=== PATIENT | male | born 1995 | race Caucasian/White ===

== ENCOUNTER 2023-06-17 10:06 | Day surgery (SDC) | payer SELFPAY ==
[2023-06-17] VITALS (8 sets, daily range): BP systolic 111–130; BP diastolic 56–81; PULSE 64–82; RESP 14–18; TEMP 36.2–36.9; O2SAT 96–100; BMI 25.9
[2023-06-17] MEDS: Lactated Ringers 1,000 ML 15 ML IV (10:45)
--- NOTE | 2023-06-17 11:15 | HP.PCM_ITS ---
History and Physical Date of Admission: 06/17/23 Intake Vital Signs 04/23/2413:14 Height 5 ft 7 in Weight: 166 lb BMI 25.9 BP 114/70 Blood Pressure Location Rt brachial Position Sitting Respiration 17 Pulse 85 Pulse Source Monitor Temp 97.4 F L Temp Source Temporal Pulse Oximetry (%) 98 Oxygen Delivery Method room air Intake Visit Reasons: SELF REFERRED INGUINAL HERNIA Chief Complaint: self referred inguinal hernia Is patient in pain?: No Allergies No Known Allergies Allergy (Verified 04/23/23 14:15) Medications NK 04/23/23 [History Confirmed 04/23/23] [facility] Social History (Updated 04/23/23 @ 14:14 by Brooke Turner) Smoking Status: Never smoker alcohol intake: never HPI HPI HPI: Patient is a 27-year-old male who says 2 months ago he was lifting something heavy and felt a bulge in his right groin. The bulge has been recurring and it is painful and he is able to push it back in. Denies any nausea or vomiting or previous surgical history. ROS General General: No weight change, appetite, fatigue, colon cancer, breast cancer or weakness HEENT HEENT: No difficulty swallowing, eye injury, eye surgery, swollen glands or hoarseness Endo Endocrine: No thyroid disease, diabetes mellitus, thyroid cancer, Hair loss, heat intolerance or cold intolerance Skin Skin: No rash or changing moles Musc Musculoskeletal: No back problems, arthritis, rheumatoid arthritis, gout or joint pain Cardio Cardiovascular: No murmur, pacemaker, heart disease, atrial fibrillation, high blood pressure, heart attack, heart stent, palpitations, shortness of breat with exertion or chest pain Psych Psychiatric: No depression, anxiety or hearing voices Resp Respiratory: No shortness of breath, No sleep apnea, No cough, No COPD, No asthma, No emphysema and No wheezing Gastro Gastrointestinal: No abdominal pain, No nausea or vomiting, No diarrhea, No constipation, No blood in stool, No acid reflux, No hemorrhoids, No ulcers, No gallbladder problem and No black,tarry stools Travis Hematologic: No blood thinners, No blood disorders, No bleeding, No anemia and No blood clots Neuro Neurologic: No system reviewed and no additional complaints, except as documented, No as per HPI, No abnormal gait, No abnormal hearing, No abnormal movements, No abnormal speech, No behavioral changes, No burning sensations, No confusion, No convulsions, No disequilibrium, No dizziness, No localized weakness, No frequent falls, No headache(s), No lack of coordination, No loss of vision, No memory loss, No numbness, No other visual disturbances, No radicular pain, No restless legs, No sensory deficit, No syncope, No tingling, No tremor(s), No weakness and No other Exam Const General: cooperative Orientation: alert and oriented x3 HENMT Head: normal to inspection Neck Neck: normal visual inspection and full ROM Chest Chest palpation & inspection: normal inspection of the chest Resp Effort & Inspection: normal respiratory effort Auscultation: clear to auscultation bilaterally Cardio Rate: regular rate Rhythm: regular rhythm GI Inspection: non-distended Palpation: soft, hernia indirect inguinal on the right and nontender Skin General: no rashes or lesions noted Neuro Genera l: patient alert and patient oriented x3 Extrem General: full ROM Psych Appearance: grossly normal Mental Status: mental status grossly normal Assessment and Plan Assessment and Plan (1) Right inguinal hernia: Status: Acute Plan: The patient has a soft reducible right inguinal hernia. I discussed robotic assisted laparoscopic inguinal hernia repair with mesh with the patient. I discussed the procedure in detail as well as the risks including but not limited to bleeding, infection, injury other organs such as the bowel, bladder, blood supply to the testicle. Patient understands all the risks and is when to proceed. Patient says he has inguinal hernias that run in the family and all of the males and he would like the opposite side repaired if there is any sign of potential hernia. Renzo Pickard MD Pager: [facility] [address] [place] [address] [address] [place] [address] Office: I have examined the patient and the H&P has been reviewed. There are no clinical changes since date of exam.
[2023-06-17] MEDS: Cefazolin 2 GM in 0.9% Normal Saline (100mL Bag) 100 ML IV (11:36)
[2023-06-17] MEDS: Bupivacaine Mpf 0.5% 30 ML VIAL (12:22)
--- NOTE | 2023-06-17 12:45 | OP.PCM_ITS ---
Report of Operation Date of Procedure: 06/17/23 Pre-Operative Diagnosis: Right inguinal hernia Post-Operative Diagnosis: Same Surgery/Procedure Performed:: Robotic assisted laparoscopic right inguinal hernia repair with mesh Type of Anesthesia: General/Regional Estimated Blood Loss (mL): 5 Description of Procedure: Patient was brought back to the operating room and general anesthesia was ind uced. The abdomen was prepped and draped in usual sterile fashion. Next a midline incision was made superior to the umbilicus and the fascia was grasped and elevated. A Veress needle was placed into the abdomen and a drop test was performed. Next the abdomen was insufflated to 15 mmHg and the Veress needle was removed. A camera port was placed and the camera was placed into the abdomen. It was inspected for injuries and there were none. Patient was placed in Trendelenburg position. The inguinal regions were inspected and the patient only had a right inguinal hernia. Next under direct visualization an 8 mm port was placed in the right lateral abdominal sidewall as well as the left lateral abdominal sidewall and the robot was docked. Using electrocautery scissors in the right lower quadrant incision was made in the peritoneum and then deepened and dissected inferiorly until the hernia sac was encountered and then it was reduced into the abdomen along with a small lipoma. Dissection was carried posteriorly until there was a long area for overlap. Next a ProGrip mesh was placed into the right groin and unfolded over the hernia defect area. Next the peritoneum was reapproximated using a running 3 OV lock suture which completely cover the mesh by the end of the Procedure. The robot was undocked and the abdomen was allowed to desufflate. The ports were removed. The incisions were injected with local anesthetic and closed interrupted 4-0 Monocryl sutures. Steri-Strips and bandages were applied. Scrotum was checked in the end the case and contain both testicles. Patient was awoken and taken to PACU in stable condition and tolerated the procedure well. Grafts/Implants Used: ProGrip mesh in the right groin Admit VTE Documentation VTE Mechan Device Prophylaxis: SCD's
--- NOTE | 2023-06-17 12:52 | DCINST_ITS ---
Discharge Instructions Diet Discharge Diet: Light diet - advance as tolerated Activity Discharge Activity: May Shower (tomorrow over bandages) Lifting Restrictions: 15 lbs for 4 weeks Additional Activity Instructions:: Take ibuprofen and Tylenol alternating for pain, oxycodone for breakthrough pain. Dressing / Incision Call your doctor if your incision/area has: Continuous Slow Oozing, Sudden Increased Bleeding, Increased Pain/ Swelling, Increased Redness, Foul Smelling Discharge and Swelling at the incision site Call your doctor if you observe: Fever of 101 or Higher Remove Dressing in: 2 days (Remove clear dressing in 2 days, remove Steri-Strips in 7 to 10 days) Cleanse incision/area with: Soap & Water Follow Up Care Please Follow Up With: Renzo Pickard MD When: Please call to schedule 2 week follow up appointment. [phone] Test Results: Test results from this visit will be discussed in further detail at your follow- up appointment, if applicable. Discharge Plan Admission Attending Provider: Renzo Pickard Primary Care Provider: Care Physician,Lisa Primary Discharge Orders/Prescriptions Prescriptions: New oxycodone 5 mg Tablet 5 - 10 mg PO Q4H PRN PRN (Reason: Pain Score 4-10/10) 5 Days Qty: 10 0RF Referrals / Follow Up: Care Physician,No Primary [Primary Care Provider] - Disposition Disposition (needs filled in before D/C Order can be placed): Home, Self Care
[2023-06-17] MEDS: Acetaminophen 325 MG Tablet 650 MG PO (13:50)
== END 2023-06-17 15:37 | disposition home or self-care (01) ==
LOC: SDC 10:20 → AC 10:22
PROVIDERS: Referring Provider Surgery; Visit Provider Surgery
PROC: (CPT 49650; principal; 2023-06-17 11:10)
DX: K40.90 Unilateral inguinal hernia, without obstruction or gangrene, not specified as recurrent (principal); D17.5 Benign lipomatous neoplasm of intra-abdominal organs
CPT/HCPCS: 49650; S2900; 00840; J7120; J2405

== ENCOUNTER 2024-08-24 12:59 | Emergency (ER) | payer OTHER, SELFPAY ==
[2024-08-24 13:00] VITALS: BP 141/93; PULSE 88; RESP 16; TEMP 37; O2SAT 98; BMI 26.1
--- NOTE | 2024-08-24 13:14 | EDS_ITS ---
HPI History of Present Illness Chief Complaint: Head Injury Detail of Chief Complaint: Head injury and right ear injury Informant: patient Narrative Narrative: Patient presents to the emergency department with head injury and right ear inju ry that occurred prior to arrival in the emergency department. 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 He may have hit the side of the forklift. He was knocked unconscious for 1 to 2 minutes. Currently complaining of a headache and pain to his right ear. Denies neck pain or chest pain or abdominal pain. Unsure of his last tetanus shot. No significant medical history. [facility] Medical History (Updated 08/24/24 @ 14:[address] Elsa Hutchison, DO) Restless legs Non-smoker Leg cramps Home Medications ?Medication ?Instructions ?Recorded ?Last Taken ?Type NK 08/24/24 Unknown History Allergy/AdvReac Type Severity Reaction Status Date / Time No Known Allergies Allergy Verified 08/24/24 13:00 Surgical History No history of previous surgery Social History (Updated 04/23/23 @ 14:14 by Brooke Turner) Smoking Status: Never smoker alcohol intake: never ROS ROS ED Review of Systems ROS Unobtainable: other Constitutional Constitutional ED: Reports lethargy; Denies chills, fever(s), sweats or weight loss Eyes Eyes: Denies blurry vision, change in vision or diplopia ENT ENT ED: Reports other Details: Right ear lacerations, scalp laceration ; Denies rhinorrhea or sore throat Cardiovascular Cardiovascular: Denies chest pain, orthopnea or racing heartbeat Respiratory/Chest Respiratory/Chest: Denies cough, dyspnea, dyspnea on exertion, orthopnea or sp utum Gastrointestinal Gastrointestinal: Denies abdominal pain, diarrhea, nausea or vomiting Genitourinary Genitourinary ED: Denies dysuria, hematuria or urinary frequency Musculoskeletal Musculoskeletal: Denies arthralgias, back pain, myalgias or neck pain Integumentary Denies abscess, Abrasions or rash Neurologic Neurologic: Reports headache(s); Denies weakness Psychiatric Psychiatric: Denies anxiety, depression or suicidal thoughts Endocrine Endocrinology: Denies polydipsia, polyphagia or polyuria Hematologic/Lymphatic Hematologic/Lymphatic: Denies easy bleeding, easy bruising or lymphadenopathy Allergic/Immunologic Allergic/Immunologic ED: Denies mouth swelling, tongue swelling or urticaria EXAM Physical Exam Const Vital Signs: 08/24/24 13:00 08/24/24 13:04 Temperature 98.6 F Temperature Source Oral Pulse Rate 88 Respiratory Rate 16 Respiratory Effort Normal Respiratory Depth Normal Respiratory Pattern Normal Blood Pressure 141/93 H Blood Pressure Mean 109 Pulse Ox 98 Oxygen Delivery Method Room Air Room Air Positive well nourished and well developed General Appearance ED: well developed and NAD HEENT Reports TM's clear and moist mucous membranes HEENT Narrative: Patient has a right posterior occiput laceration measuring 8 cm in length. No bony step-offs or depressions no obvious foreign bodies noted. Evaluation of the right ear does reveal complex laceration of the inner portion of the ear appears to be macerated. normocephalic and atraumatic; Negative for trauma or tenderness Tympanic Membrane ED: Yes TM's clear Eyes PERRL and EOMs intact bilaterally General Eye ED: Negative for pale conjunctiva or scleral icterus Neck no lymphadenopathy, supple and no JVD General: Negative for tenderness Chest Wall inspection of chest normal and palpation of chest normal Chest: Negative for tenderness Resp normal respiratory effort and clear to auscultation bilaterally Effort and Inspection: Negative for respiratory distress or pain with movement Auscultation: Negative for rhonchi, wheezes or diminished lung sounds Cardio regular rate, regular rhythm, S1 normal heart sound, S2 normal heart sound and no murmurs Peripheral Pulses: pulses 2+ throughout GI normal to inspection, nondistended, normoactive bowel sounds, soft to palpation, non-tender, non-distended and no masses Back/Spine no CVA tenderness and no thoracic nor lumbar tenderness Extremity normal to inspection General Extremety ED: Negative for edema General Extremity: Negative for edema Neuro oriented x3, CN's II-XII intact bilaterally, no sensory deficits noted and gait normal Sensorium / Orientation: awake, alert, oriented to person, oriented to place and oriented to time Motor Exam: strength 5/5 throughout and strength abnormal Psych mental status grossly normal Skin no rashes or lesions noted and no wounds MDM MDM MDM Narrative Medical decision making narrative: Patient presents with injury to his scalp and right ear after a fall. Positive LOC. GCS of 15 on arrival. Following commands. Unsure of his last tetanus. He received a tetanus booster. CT scan of the brain without contrast showed no acute intracranial hemorrhage. No skull fracture. CT of the C-spine showed no fractures. I discussed case with Dr. Fishman plastic surgeon who will take patient to the OR for definitive treatment and repair of lacerations of the scalp as well as the ear. Lab Data Attestation: I reviewed the patient's lab results. Radiography Diagnostic Testing: Clinical Impression(s) from Imaging Studies Brain CT 08/24/24 13:14 IMPRESSION: No acute intracranial hemorrhage, midline shift or mass effect. If symptoms persist, further evaluation with MRI is recommended. Reading Location: [facility] Cervical Spine CT 08/24/24 13:14 IMPRESSION: UNREMARKABLE NONCONTRAST CERVICAL SPINE CT. Reading Location: [place] [address] Discharge Plan Triage Chief Complaint: Head Injury ED Provider: Elsa Hutchison Dx/Rx/DC Orders Clinical Impression: Closed head injury, Concussion, Scalp laceration, Complex laceration of ear Instructions: ED Concussion, ED FACIAL LACERATION Suture Tape, ED Laceration Scalp Stitches or [facility] Prescriptions: No Action NK Primary Care Provider: Care Physician,No Primary Referrals: Deep Fishman MD [Med Staff - Active Staff] - Care Physician,No Primary [Primary Care Provider] - Print Language: Tristanian Disposition Disposition: Home, Self Care
--- NOTE | 2024-08-24 13:14 | CT_ITS ---
EXAM: CT Head Without Intravenous Contrast CLINICAL INDICATION: HEAD INJURY TECHNIQUE: Axial computed tomography images of the head/brain without intravenous contrast. This CT exam was performed using one or more of the following dose reduction techniques: automated exposure control, adjustment of the mA and/or kV according to patient size, and/or use of iterative reconstruction technique. COMPARISON: No relevant prior studies available. FINDINGS: BRAIN AND EXTRA-AXIAL SPACES: No acute intracranial hemorrhage, midline shift or mass effect. If symptoms persist, further evaluation with MRI is recommended. No significant white matter disease. BONES/JOINTS: Unremarkable. No acute fracture. SOFT TISSUES: Unremarkable. SINUSES: Unremarkable as visualized. No acute sinusitis. MASTOID AIR CELLS: Unremarkable as visualized. No mastoid effusion. CT/Brain/Head without Contrast IMPRESSION: No acute intracranial hemorrhage, midline shift or mass effect. If symptoms per sist, further evaluation with MRI is recommended. Reading [facility]
--- NOTE | 2024-08-24 13:14 | CT_ITS ---
PROCEDURE: SPINE CERVICAL WITHOUT CONTRAS 08/24/2024 REASON FOR EXAM: FALL Laceration of the left ear following a fall. TECHNIQUE: Cervical spine CT without contrast. Coronal and Sagittal reconstruction series were provided. One or more dose reduction techniques were used (e.g., Automated exposure control, adjustment of the mA and/or kV according to patient size, use of iterative reconstruction technique RADIATION DOSE SUMMARY: CTDlvol: 32.5 mGy DLP: 2087.3 mGycm COMPARISON: None FINDINGS: Alignment: Normal Vertebrae: Unremarkable Soft Tissues: Unremarkable Other: C1-2: Unremarkable C2-3: Unremarkable C3-4: Unremarkable C4-5: Unremarkable C5-6: Unremarkable C6-7: Unremarkable C7-T1: Unremarkable CT/Spine Cervical without Contras IMPRESSION: UNREMARKABLE NONCONTRAST CERVICAL SPINE CT. Reading Location: [place] [address]
[2024-08-24] MEDS: Diphth,Pertuss(Acell),Tet Vac 0.5 ML Vial IM (14:31)
[2024-08-24 14:39] VITALS: BP 137/63; PULSE 81; RESP 16; TEMP 36.7; O2SAT 99
--- OUTSIDE RECORDS SUMMARY | 2024-08-24 21:07 | XMS RPT_ITS | CCD ---
Author Organization [facility] Care Team Providers Care Maintenance Machinist Name Role Phone Dr. Renzo Pickard Attending Provider [phone] Dr. Renzo Pickard Referring Provider [phone] Dr. Renzo Pickard Other Provider Care Physician, No Primary Primary Care Provider Unavailable Renzo Pickard Attending Unavailable Care Physician, No Primary Primary Care Unava ilable Renzo Pickard Consulting Unavailable Renzo Pickard Attending Unavailable Renzo Pickard Referring Unavailable Care Physician, No Primary Primary Care Unava ilable Renzo Pickard Attending Unavailable Neeraj, Renzo Referring Unavailable Care Physician, No Primary Primary Care Provider Unavailable Dr. Elsa Hutchison DO Emergency Provider Care Physician, No Primary Referring Provider Un available Sravanthi MERCHANT, Dr. Adame Attending Provider Medications Current Medications Medication Drug Class(es) Dates Sig (Normalized) Sig (Original) ciprofloxacin 500 mg oral tablet (1 source) Quinolone Antimicrobial Start: 08-24-2024 take 1 tablet by mouth twice daily Ciprofloxacin Hcl (Cipro) 500 mg tablet Active 500 mg PO TWICE A DAY 14 7 August 24, 2024 12:00am August 30, 2024 12:00am [place] (Nk) (1 source) Start: 08-24-2024 [place] (Nk) Active August 24, 2024 12:00am Completed/Discontinued Medications Medication Drug Class(es) Dates Sig (Normalized) Sig (Original) oxyCODONE hydrochloride 5 mg oral tablet (3 sources) Opioid Agonist Start: 06-17-2023 End: 08-24-2024 take 5-10 mg by mouth every four hours as needed for pain Oxycodone 5 mg Tablet Discontinued 5 - 10 mg PO EVERY 4 HOURS NEEDED as needed for Pain Score 4-10/10 10 5 June 17, 2023 August 24, 2024 1:06pm Problems Problem Classification Problem Date Documented Da te Episodic/Chronic Abdominal hernia (5 sources) Right inguinal hernia ; Translations: [Unilateral inguinal hernia, without obstruction or gangrene, not specified as recurrent] Onset: 06-17-2023 04-23-2023 Episodic Intracranial injury (2 sources) Concussion injury of body structure; Translations: [Concussion] 08-24-2024 Episodic Open wounds of head; neck; and trunk (4 sources) Scalp laceration; Translations: [Laceration without foreign body of scalp, initial encounter] 08-24-2024 Episodic Other injuries and conditions due to external causes (2 sources) Closed injury of head; Translations: [Unspecified injury of head, initial encounter] 08-24-2024 Episodic Results Test Name Value Interpretation Reference Range Facil ity Discharge Instructionon 04 Discharge Instruction [facility] Medical Records Department [address] [place] [id number] Instructions for Home/Discharge Instructions 06/17/23 1252 MR#: [id number] Acct: [id number] Name: KASHMIR MAKI Rep #: [id number] : 1995 27 From: Renzo Pickard MD PCP: Care Physician,No Primary Status:REG [facility] Discharge Instructions Diet Discharge Diet: Light diet - advance as tolerated Activity Discharge Activity: July Shower (tomorrow over bandages) Lifting Restrictions: 15 lbs for 4 weeks Additional Activity Instructions:: Take ibuprofen and Tylenol alternating for pain, oxycodone for breakthrough pain. Dressing / Incision Call your doctor if your incision/area has: Continuous Slow Oozing, Sudden Increased Bleeding, Increased Pain/ Swelling, Increased Redness, Foul Smelling Discharge and Swelling at the incision site Call your doctor if you observe: Fever of 101 or Higher Remove Dressing in: 2 days (Remove clear dressing in 2 days, remove Steri-Strips in 7 to 10 days) Cleanse incision/area with: Soap Water Follow Up Care Please Follow Up With: Renzo Pickard MD When: Please call to schedule 2 week follow up appointment. [phone] Test Results: Test results from this visit will be discussed in further detail at your follow-up appointment, if applicable. Discharge Plan Admission Attending Provider: Renzo Pickard Primary Care Provider: Care Physician,No Primary Discharge Orders/Prescriptions Prescriptions: New oxycodone 5 mg Tablet 5 - 10 mg PO Q4H PRN PRN (Reason: Pain Score 4-10/10) 5 Days Qty: 10 0RF Referrals / Follow Up: Care Physician,No Primary [Primary Care Provider] - Disposition Disposition (needs filled in before D/C Order can be placed): Home, Self Care 06/17/23 1256 Renzo Pickard MD CC: No Primary Care Physician Signed Normal [facility] Operative Reporton 4 Operative Report [facility] Medical Records Department [address] [place] [address] Operative Report 06/17/23 1245 MR#: [id number] Acct: [id number] Name: KASHMIR MAKI Rep #: [id number] : 1995 27 From: Renzo Pickard MD PCP: Care Physician,No Primary Status:[facility] Location: [place] [address] Report of Operation Date of Procedure: 06/17/23 Pre-Operative Diagnosis: Right inguinal hernia Post-Operative Diagnosis: Same Surgery/Procedure Performed:: Robotic assisted laparoscopic right inguinal hernia repair with mesh Type of Anesthesia: General/Regional Estimated Blood Loss (mL): 5 Description of Procedure: Patient was brought back to the operating room and general anesthesia was induced. The abdomen was prepped and draped in usual sterile fashion. Next a midline incision was made superior to the umbilicus and the fascia was grasped and elevated. A Veress needle was placed into the abdomen and a drop test was performed. Next the abdomen was insufflated to 15 mmHg and the Veress needle was removed. A camera port was placed and the camera was placed into the abdomen. It was inspected for injuries and there were none. Patient was placed in Trendelenburg position. The inguinal regions were inspected and the patient only had a right inguinal hernia. Next under direct visualization an 8 mm port was placed in the right lateral abdominal sidewall as well as the left lateral abdominal sidewall and the robot was docked. Using electrocautery scissors in the right lower quadrant incision was made in the peritoneum and then deepened and dissected inferiorly until the hernia sac was encountered and then it was reduced into the abdomen along with a small lipoma. Dissection was carried posteriorly until there was a long area for overlap. Next a ProGrip mesh was placed into the right groin and unfolded over the hernia defect area. Next the peritoneum was reapproximated using a running 3 OV lock suture which completely cover the mesh by the end of the Procedure. The robot was undocked and the abdomen was allowed to desufflate. The ports were removed. The incisions were injected with local anesthetic and closed interrupted 4-0 Monocryl sutures. Steri- Strips and bandages were applied. Scrotum was checked in the end the case and contain both testicles. Patient was awoken and taken to PACU in stable condition and tolerated the procedure well. Grafts/Implants Used: ProGrip mesh in the right groin Admit VTE Documentation VTE Mechan Device Prophylaxis: SCD's 06/17/23 1248 Cosigner Signature (if applicable): CC: Dr. Renzo Pickard MD; No Primary Care Physician Signed Normal [facility] Surgery Visit Reporton 04-23 Surgery Visit Report [facility] [address] [place] [address] OFFICE VISIT Date of Service: 04/23/23 MR#: [id number] Acct: [id number] Name: KASHMIR MAKI Rep #: [id number] : 1995 Provider: Dr. Renzo vázquez MD Age/Sex: 27/M Location: [facility] Status: Signed Intake Vital Signs 04/23/23 14:14 Height 5 ft 7 in Weight: 166 lb BMI 25.9 BP 114/70 Blood Pressure Location Rt brachial Position Sitting Respiration 17 Pulse 85 Pulse Source Monitor Temp 97.4 F L Temp Source Temporal Pulse Oximetry (%) 98 Oxygen Delivery Method room air Intake Visit Reasons: SELF REFERRED INGUINAL HERNIA Chief Complaint: self referred inguinal hernia Is patient in pain?: No Allergies No Known Allergies Allergy (Verified 04/23/23 14:15) Medications NK 04/23/23 [History Confirmed 04/23/23] PFSH Social History (Updated 04/23/23 @ 14:14 by Brooke Turner) Smoking Status: Never smoker alcohol intake: never HPI HPI HPI: Patient is a 27-year-old male who says 2 months ago he was lifting something heavy and felt a bulge in his right groin. The bulge has been recurring and it is painful and he is able to push it back in. Denies any nausea or vomiting or previous surgical history. ROS General General: No weight change, appetite, fatigue, colon cancer, breast cancer or weakness HEENT HEENT: No difficulty swallowing, eye injury, eye surgery, swollen glands or hoarseness Endo Endocrine: No thyroid disease, diabetes mellitus, thyroid cancer, Hair loss, heat intolerance or cold intolerance Skin Skin: No rash or changing moles Musc Musculoskeletal: No back problems, arthritis, rheumatoid arthritis, gout or joint pain Cardio Cardiovascular: No murmur, pacemaker, heart disease, atrial fibrillation, high blood pressure, heart attack, heart stent, palpitations, shortness of breat with exertion or chest pain Psych Psychiatric: No depression, anxiety or hearing voices Resp Respiratory: No shortness of breath, No sleep apnea, No cough, No COPD, No asthma, No emphysema and No wheezing Gastro Gastrointestinal: No abdominal pain, No nausea or vomiting, No diarrhea, No constipation, No blood in stool, No acid reflux, No hemorrhoids, No ulcers, No gallbladder problem and No black,tarry stools Travis Hematologic: No blood thinners, No blood disorders, No bleeding, No anemia and No blood clots Neuro Neurologic: No system reviewed and no additional complaints, except as documented, No as per HPI, No abnormal gait, No abnormal hearing, No abnormal movements, No abnormal speech, No behavioral changes, No burning sensations, No confusion, No convulsions, No disequilibrium, No dizziness, No localized weakness, No frequent falls, No headache(s), No lack of coordination, No loss of vision, No memory loss, No numbness, No other visual disturbances, No radicular pain, No restless legs, No sensory deficit, No syncope, No tingling, No tremor(s), No weakness and No other Exam Const General: cooperative Orientation: alert and oriented x3 HENMT Head: normal to inspection Neck Neck: normal visual inspection and full ROM Chest Chest palpation inspection: normal inspection of the chest Resp Effort Inspection: normal respiratory effort Auscultation: clear to auscultation bilaterally Cardio Rate: regular rate Rhythm: regular rhythm GI Inspection: non-distended Palpation: soft, hernia indirect inguinal on the right and nontender Skin General: no rashes or lesions noted Neuro General: patient alert and patient oriented x3 Extrem General: full ROM Psych Appearance: grossly normal Mental Status: mental status grossly normal Assessment and Plan Assessment and Plan (1) Right inguinal hernia: Status: Acute Plan: The patient has a soft reducible right inguinal hernia. I discussed robotic assisted laparoscopic inguinal hernia repair with mesh with the patient. I discussed the procedure in detail as well as the risks including but not limited to bleeding, infection, injury other organs such as the bowel, bladder, blood supply to the testicle. Patient understands all the risks and is when to proceed. Patient says he has inguinal hernias that run in the family and all of the males and he would like the opposite side repaired if there is any sign of potential hernia. Renzo Pickard MD Pager: [facility] [address] [place] [address], [address] [place] [address] Office: Coding Level of Care Code Off vis,new,level 3 Diagnoses Right inguinal hernia K40.90 04/23/23 1425 Date Renzo Pickard MD Cosigner Signature: Date (more content not included)... Normal [facility] Vital Signs Date Time Vital Sign Value Performing Clinician Soniya agarwal 08-24-2024 15:22-0400 Diastolic blood pressure 72 mm[Hg] No Primary Care Physician [facility] 08-24-2024 15:22-0400 Heart rate 96 /min No Primary Care Physician [facility] 08-24-2024 15:22-0400 Respiratory rate 18 /min No Primary Care Physician [facility] 08-24-2024 15:22-0400 SaO2% (BldA) [Mass fraction] 98 % No Primary Care Physician [facility] 08-24-2024 15:22-0400 Systolic blood pressure 117 mm[Hg] No Primary Care Physician [facility] 08-24-2024 14:39-0400 Body temperature 98 [degF] No Primary Care Physician [facility] 08-24-2024 14:39-0400 Diastolic blood pressure 63 mm[Hg] No Primary Care Physician [facility] 08-24-2024 14:39-0400 Heart rate 81 /min No Primary Care Physician [facility] 08-24-2024 14:39-0400 Respiratory rate 16 /min No Primary Care Physician [facility] 08-24-2024 14:39-0400 SaO2% (BldA) [Mass fraction] 99 % No Primary Care Physician [facility] 08-24-2024 14:39-0400 Systolic blood pressure 137 mm[Hg] No Primary Care Physician [facility] 08-24-2024 13:00-0400 Body height 170.18 cm No Primary Care Physician [facility] 08-24-2024 13:00-0400 Body mass index (BMI) [Ratio] 26.1 kg/m2 No Primary Care Physician [facility] 08-24-2024 13:00-0400 Body weight 75.6 kg No Primary Care Physician [facility] 06-17-2023 15:30-0400 Body temperature 97.5 [degF] Dr. Renzo Pickard Work Phone: [facility] 06-17-2023 15:30-0400 Diastolic blood pressure 66 mm[Hg] Dr. Renzo Pickard Work Phone: [facility] 06-17-2023 15:30-0400 Heart rate 82 /min Dr. Renzo Pickard Work Phone: [facility] 06-17-2023 15:30-0400 Respiratory rate 18 /min Dr. Renzo Pickard Work Phone: [facility] 06-17-2023 15:30-0400 SaO2% (BldA) [Mass fraction] 100 % Dr. Renzo Pickard Work Phone: [facility] 06-17-2023 15:30-0400 Systolic blood pressure 129 mm[Hg] Dr. Renzo Pickard Work Phone: [facility] 06-17-2023 10:42-0400 Body height 170.[address] Renzo Pickard Work Phone: [facility] 06-17-2023 10:42-0400 Body mass index (BMI) [Ratio] 25.9 kg/m2 Dr. Renzo Pickard Work Phone: [facility] 06-17-2023 10:42-0400 Body weight [address] Renzo Pickard Work Phone: [facility] 04-23-2023 14:14-0500 Body mass index (BMI) [Ratio] 25.9 kg/m2 Dr. Renzo Pickard Work Phone: [facility] 04-23-2023 14:14-0500 Body temperature 97.4 [degF] Dr. Renzo Pickard Work Phone: [facility] 04-23-2023 14:14-0500 Body weight 75.[address] Renzo Pickard Work Phone: [facility] 04-23-2023 14:14-0500 Diastolic blood pressure 70 mm[Hg] Dr. Renzo Pickard Work Phone: [facility] 04-23-2023 14:14-0500 Heart rate 85 /min Dr. Renzo Pickard Work Phone: [facility] 04-23-2023 14:14-0500 Respiratory rate 17 /min Dr. Renzo Pickard Work Phone: [facility] 04-23-2023 14:14-0500 SaO2% (BldA) [Mass fraction] 98 % Dr. Renzo Pickard Work Phone: [facility] 04-23-2023 14:14-0500 Systolic blood pressure 114 mm[Hg] Dr. Renzo Pickard Work Phone: [facility] Encounters Encounter Date Encounter Type Care Provider Facility Start: 08-24-2024 End: 08-24-2024 ambulatory No Primary Care Physician [facility] Work Phone: Start: 08-24-2024 End: 08-24-[address] Deep Fishman MD -[facility] Work Phone: Start: 08-24-2024 End: 08-24-2024 Emergency department patient visit No Primary Care Physician -Emergency Department Work Phone: Start: 06-17-2023 ambulatory No Primary Car e Physician Facility:[facility] Start: 06-17-2023 End: 06-17-2023 ambulatory No Primary Care Physician Facility:[facility] Start: 06-17-2023 Non-patient / Non-visit Dr. Renzo Pickard Work Phone: [facility] Start: 06-17-2023 End: 06-17-2023 Admission to same day surgery center Dr. Renzo Pickard Work Phone: [facility] Start: 06-17-2023 End: 06-17-[address] Renzo Pickard Work Phone: [facility] Work Phone: Start: 04-23-2023 End: 04-23-2023 ambulatory Renzo Pickard Facility:[facility] Start: 04-23-2023 End: 04-23-[address] Renzo Pickard Work Phone: [facility] Work Phone: Procedures Date Procedure Procedure Detail Performing Clinician Start: 08-24-2024 CT cervical spine wi thout contrast No Primary Care Physician Start: 08-24-2024 CT of head without contrast No Primary Care Physician Start: 06-17-2023 Lap Robotic Inguinal Hernia (Right) Dr. Renzo Pickard Work Phone: Plan of Treatment Date Care Activity Detail Author Start: 06-17-[facility]23 [facility] ED Concussion ED FACIAL LACERATION Suture Tape ED Laceration Scalp Stitches or [place] [facility] Work Phone: Patient referral [facility] Work Phone: Immunizations Immunization Date Immunization Notes Care Provider Fa cility 08-24-2024 tetanus toxoid, redu serene diphtheria toxoid, and acellular pertussis vaccine, adsorbed No Primary Care Physician [facility] Payers Date Payer Category Payer Unknown [id number] 2023 Self-pay Unknown [id number] Unknown [id number] Unknown [id number] Social History Date Type Detail Facility Start: 05-21-2023 Tobacco smoking stat [facility] Unknown if ever smoked [facility] Start: 1995 Sex Assigned At Male [facility] Start: 08-24-2024 [facility] Medical Equipment Procedure Code Equipment Code Equipment Origin al Text Equipment Identifier Dates MESH,PRO TREE INSPECTOR [id number] FDA Start: 06-17-2023 MESH,PRO TREE INSPECTOR [id number] FDA Start: 06-17-2023 Goals Date Patient Goal Desired Activity /State Mental Status Date Assessment Result Facility 06-17-2023 Cognitive function Light Pain [facility] Work Phone: Radiology Diagnostic study note 08-24-2024 Note Date & Type Note Facility 08-24-2024 Radiology Diagnostic study note [facility] Imaging Services [address] [place], [place] [address] Spine Cervical without Contras MR#: [id number] Acct: [id number] Name: KASHMIR MAKI Rep #: [id number] : 1995 M 29 From: Jhonny Hutchins MD PCP: Care Physician,No Primary Status: REG ER Study:Spine Cervical without Contras Date of Exam: 08/24/24 Exam# [id number] Ordering Dr: Sharon Hutchison DO PROCEDURE: SPINE CERVICAL WITHOUT CONTRAS 08/24/2024 REASON FOR EXAM: FALL Laceration of the left ear following a fall. TECHNIQUE: Cervical spine CT without contrast. Coronal and Sagittal reconstruction series were provided. One or more dose reduction techniques were used (e.g., Automated exposure control, adjustment of the mA and/or kV according to patient size, use of iterative reconstruction technique RADIATION DOSE SUMMARY: CTDlvol: 32.5 mGy DLP: 2087.3 mGycm COMPARISON: None FINDINGS: Alignment: Normal Vertebrae: Unremarkable Soft Tissues: Unremarkable Other: C1-2: Unremarkable C2-3: Unremarkable C3-4: Unremarkable C4-5: Unremarkable C5-6: Unremarkable C6-7: Unremarkable C7-T1: Unremarkable CT/Spine Cervical without Contras IMPRESSION: UNREMARKABLE NONCONTRAST CERVICAL SPINE CT. Reading Location: [place] [address] CC: Dr. Elsa Hutchison DO; No Primary Care Physician ~ Crew Person: Signed [facility] Radiology Diagnostic study note 08-24-2024 Note Date & Type Note Facility 08-24-2024 Radiology Diagnostic study note [facility] Imaging Services [address] [place], [place] [address] Brain/Head without Contrast MR#: [id number] Acct: [id number] Name: KASHMIR MAKI Rep #: [id number] : 1995 M 29 From: Jacqui Bernard MD PCP: Care Physician,No Primary Status: REG ER Study:Brain/Head without Contrast Date of Exa m: 08/24/24 Exam# [id number] Ordering Dr: Sharon Hutchison DO EXAM: CT Head Without Intravenous Contrast CLINICAL INDICATION: HEAD INJURY TECHNIQUE: Axial computed tomography images of the head/brain without intravenous contrast. This CT exam was performed using one or more of the following dose reduction techniques: automated exposure control, adjustment of the mA and/or kV according to patient size, and/or use of iterative reconstruction technique. COMPARISON: No relevant prior studies available. FINDINGS: BRAIN AND EXTRA-AXIAL SPACES: No acute intracranial hemorrhage, midline shift or mass effect. If symptoms persist, further evaluation with MRI is recommended. No significant white matter disease. BONES/JOINTS: Unremarkable. No acute fracture. SOFT TISSUES: Unremarkable. SINUSES: Unremarkable as visualized. No acute sinusitis. MASTOID AIR CELLS: Unremarkable as visualized. No mastoid effusion. CT/Brain/Head without Contrast IMPRESSION: No acute intracranial hemorrhage, midline shift or mass effect. If symptoms persist, further evaluation with MRI is recommended. Reading Location: [facility] CC: Dr. Elsa Hutchison, DO; No Primary Care Physician ~ Crew Person: Signed [facility] Discharge summary 06-17-2023 Note Date & Type Note Facility 06-17-2023 Discharge summary Note Date/Time June 17, 2023 12:55pm [facility] Medical Records Department [address] [facility] [place] [address] Instructions for Home/Discharge Instructions 06/17/23 1252 MR#: [id number] Acct: [id number] Name: KASHMIR MAKI Rep #:[id number] : 1995 27 From: Renzo haji MD PCP: Care Physician,No Primary Status :REG [facility] Discharge Instructions Diet Discharge Diet: Light diet - advance as tolerated Activity Discharge Activity: May Shower (tomorrow over bandages) Lifting Restrictions: 15 lbs for 4 weeks Additional Activity Instructions:: Take ibuprofen and Tylenol alternating for pain, oxycodone for breakthrough pain. Dressing / Incision Call your doctor if your incision/area has: Continuous Slow Oozing, Sudden Increased Bleeding, Increased Pain/ Swelling, Increased Redness, Foul Smelling Discharge and Swelling at the incision site Call your doctor if you observe: Fever of 101 or Higher Remove Dressing in: 2 days (Remove clear dressing in 2 days, remove Steri-Stripsin 7 to 10 days) Cleanse incision/area with: Soap & Water Follow Up Care Please Follow Up With: Renzo Pickard MD When: Please call to schedule 2 week follow up appointment. [phone] Test Results: Test results from this visit will be discussed in further detail at your follow-up appointment, if applicable. Discharge Plan Admission Attending Provider: Renzo Pickard Primary Care Provider: Care Physician,No Primary Discharge Orders/Prescriptions Prescriptions: New oxycodone 5 mg Tablet 5 - 10 mg PO Q4H PRN PRN (Reason: Pain Score 4-10/10) 5 Days Qty: 10 0RF Referrals / Follow Up: Care Physician,No Primary [Primary Care Provider] - Disposition Disposition (needs filled in before D/C Order can be placed): Home, Self Care 06/17/23 1256<Electronically signed by Renzo Pickard MD>Renzo Pickard MD CC: No Primary Care Physician ~ Signed [facility] Work Phone: History and physical note 06-17-2023 Note Date & Type Note Facility 06-17-2023 History and physi yaritza note Note Date/Time June 17, 2023 11:15am [facility] Medical Records Department [address] [place] [address] History & Physical Exam 06/17/23 1115 MR#: [id number] Acct: [id number] Name: KASHMIR MAKI Rep #:[id number] : 1995 27 From: Renzo haji MD PCP: Care Physician,No Primary Status :[facility] Location: [place] [address] History and Physical Date of Admission: 06/17/23 Intake Vital Signs 04/23/2413:14 Height 5 ft 7 in Weight: 166 lb BMI 25.9 BP 114/70 Blood Pressure Location Rt brachial Position Sitting Respiration 17 Pulse 85 Pulse Source Monitor Temp 97.4 F L Temp Source Temporal Pulse Oximetry (%) 98 Oxygen Delivery Method room air Intake Visit Reasons: SELF REFERRED INGUINAL HERNIA Chief Complaint: self referred inguinal hernia Is patient in pain?: No Allergies No Known Allergies Allergy (Verified 04/23/23 14:15) Medications NK 04/23/23 [History Confirmed 04/23/23] PFSH Social History (Updated 04/23/23 @ 14:14 by Brooke Turner) Smoking Status: Never smoker alcohol intake: never HPI HPI HPI: Patient is a 27-year-old male who says 2 months ago he was lifting something heavy and felt a bulge in his right groin. The bulge has been recurring and it is painful and he is able to push it back in. Denies any nausea or vomiting or previous surgical history. ROS General General: No weight change, appetite, fatigue, colon cancer, breast cancer or weakness HEENT HEENT: No difficulty swallowing, eye injury, eye surgery, swollen glands or hoarseness Endo Endocrine: No thyroid disease, diabetes mellitus, thyroid cancer, Hair loss, heat intolerance or cold intolerance Skin Skin: No rash or changing moles Musc Musculoskeletal: No back problems, arthritis, rheumatoid arthritis, gout or joint pain Cardio Cardiovascular: No murmur, pacemaker, heart disease, atrial fibrillation, high blood pressure, heart attack, heart stent, palpitations, shortness of breat withexertion or chest pain Psych Psychiatric: No depression, anxiety or hearing voices Resp Respiratory: No shortness of breath, No sleep apnea, No cough, No COPD, No asthma, No emphysema and No wheezing Gastro Gastrointestinal: No abdominal pain, No nausea or vomiting, No diarrhea, No constipation, No blood in stool, No acid reflux, No hemorrhoids, No ulcers, No gallbladder problem and No black,tarry stools Travis Hematologic: No blood thinners, No blood disorders, No bleeding, No anemia and No blood clots Neuro Neurologic: No system reviewed and no additional complaints, except as documented, No as per HPI, No abnormal gait, No abnormal hearing, No abnormal movements, No abnormal speech, No behavioral changes, No burning sensations, No confusion, No convulsions, No disequilibrium, No dizziness, No localized weakness, No frequent falls, No headache(s), No lack of coordination, No loss ofvision, No memory loss, No numbness, No other visual disturbances, No radicular pain, No restless legs, No sensory deficit, No syncope, No tingling, No tremor(s), No weakness and No other Exam Const General: cooperative Orientation: alert and oriented x3 [facility] Head: normal to inspection Neck Neck: normal visual inspection and full ROM Chest Chest palpation & inspection: normal inspection of the chest Resp Effort & Inspection: normal respiratory effort Auscultation: clear to auscultation bilaterally Cardio Rate: regular rate Rhythm: regular rhythm GI Inspection: non-distended Palpation: soft, hernia indirect inguinal on the right and nontender Skin General: no rashes or lesions noted Neuro Genera l: patient alert and patient oriented x3 Extrem General: full ROM Psych Appearance: grossly normal Mental Status: mental status grossly normal Assessment and Plan Assessment and Plan (1) Right inguinal hernia: Status: Acute Plan: The patient has a soft reducible right inguinal hernia. I discussed robotic assisted laparoscopic inguinal hernia repair with mesh with the patient. I discussed the procedure in detail as well as the risks including but not limitedto bleeding, infection, injury other organs such as the bowel, bladder, blood supply to the testicle. Patient understands all the risks and is when to proceed. Patient says he has inguinal hernias that run in the family and all ofthe males and he would like the opposite side repaired if there is any sign of potential hernia. Renzo Pickard MD Pager: [facility] [address] [place] [address], [address] [place] [address] Office: I have examined the patient and the H&P has been reviewed. There are no clinicalchanges since date of exam. 06/17/23 1115 <Electronically signed by Renzo Pickard MD> Cosigner Signature (if applicable): CC: Dr. Renzo Pickard MD; No Primary Care Physician~ Signed [facility] Work Phone: Clinical Note 06-17-2023 Note Date & Type Note Facility 06-17-2023 Note [facility] Medical Records Department [address] [place] [id number] History Physical Exam 06/17/23 1115 MR#: [id number] Acct: [id number] Name: KASHMIR MAKI Rep #: [id number] : 1995 27 From: Renzo Pickard MD PCP: Care Physician,No Primary Status:[facility] Location: [place] [address] History and Physical Date of Admission: 06/17/23 Intake Vital Signs 04/23/2413:14 Height 5 ft 7 in Weight: 166 lb BMI 25.9 BP 114/70 Blood Pressure Location Rt brachial Position Sitting Respiration 17 Pulse 85 Pulse Source Monitor Temp 97.4 F L Temp Source Temporal Pulse Oximetry (%) 98 Oxygen Delivery Method room air Intake Visit Reasons: SELF REFERRED INGUINAL HERNIA Chief Complaint: self referred inguinal hernia Is patient in pain?: No Allergies No Known Allergies Allergy (Verified 04/23/23 14:15) Medications NK 04/23/23 [History Confirmed 04/23/23] PFSH Social History (Updated 04/23/23 @ 14:14 by Brooke Turner) Smoking Status: Never smoker alcohol intake: never HPI HPI HPI: Patient is a 27-year-old male who says 2 months ago he was lifting something heavy and felt a bulge in his right groin. The bulge has been recurring and it is painful and he is able to push it back in. Denies any nausea or vomiting or previous surgical history. ROS General General: No weight change, appetite, fatigue, colon cancer, breast cancer or weakness HEENT HEENT: No difficulty swallowing, eye injury, eye surgery, swollen glands or hoarseness Endo Endocrine: No thyroid disease, diabetes mellitus, thyroid cancer, Hair loss, heat intolerance or cold intolerance Skin Skin: No rash or changing moles Musc Musculoskeletal: No back problems, arthritis, rheumatoid arthritis, gout or joint pain Cardio Cardiovascular: No murmur, pacemaker, heart disease, atrial fibrillation, high blood pressure, heart attack, heart stent, palpitations, shortness of breat with exertion or chest pain Psych Psychiatric: No depression, anxiety or hearing voices Resp Respiratory: No shortness of breath, No sleep apnea, No cough, No COPD, No asthma, No emphysema and No wheezing Gastro Gastrointestinal: No abdominal pain, No nausea or vomiting, No diarrhea, No constipation, No blood in stool, No acid reflux, No hemorrhoids, No ulcers, No gallbladder problem and No black,tarry stools Travis Hematologic: No blood thinners, No blood disorders, No bleeding, No anemia and No blood clots Neuro Neurologic: No system reviewed and no additional complaints, except as documented, No as per HPI, No abnormal gait, No abnormal hearing, No abnormal movements, No abnormal speech, No behavioral changes, No burning sensations, No confusion, No convulsions, No disequilibrium, No dizziness, No localized weakness, No frequent falls, No headache(s), No lack of coordination, No loss of vision, No memory loss, No numbness, No other visual disturbances, No radicular pain, No restless legs, No sensory deficit, No syncope, No tingling, No tremor(s), No weakness and No other Exam Const General: cooperative Orientation: alert and oriented x3 [facility] Head: normal to inspection Neck Neck: normal visual inspection and full ROM Chest Chest palpation inspection: normal inspection of the chest Resp Effort Inspection: normal respiratory effort Auscultation: clear to auscultation bilaterally Cardio Rate: regular rate Rhythm: regular rhythm GI Inspection: non-distended Palpation: soft, hernia indirect inguinal on the right and nontender Skin General: no rashes or lesions noted Neuro Genera l: patient alert and patient oriented x3 Extrem General: full ROM Psych Appearance: grossly normal Mental Status: mental status grossly normal Assessment and Plan Assessment and Plan (1) Right inguinal hernia: Status: Acute Plan: The patient has a soft reducible right inguinal hernia. I discussed robotic assisted laparoscopic inguinal hernia repair with mesh with the patient. I discussed the procedure in detail as well as the risks including but not limited to bleeding, infection, injury other organs such as the bowel, bladder, blood supply to the testicle. Patient understands all the risks and is when to proceed. Patient says he has inguinal hernias that run in the family and all of the males and he would like the opposite side repaired if there is any sign of potential hernia. eRnzo Pickard MD Pager: [facility] [address] [place] [address], [address] [place] [address] Office: I have examined the patient and the H P has been reviewed. There are no clinical changes since date of exam. 06/17/23 1115 Cosigner Signature (if applicable): CC: Dr. Renzo Pickard MD; (more content not included)... [facility] Procedure note 06-17-2023 Note Date & Type Note Facility 06-17-2023 Procedure note [facility] Evaluation note Note Date & Type Note Facility Evaluation note Diagnosis Onset Date Right inguinal hernia acute [facility] Work Phone: Evaluation note Note Date & Type Note Facility Evaluation note No assessment information availa ble [facility] Work Phone: Reason for referral (narrative) Note Date & Type Note Facility Reason for referral (narrative) No reason for referral information available [facility] Work Phone: Chief Complaint and Reason for Visit Chief Complaint SELF REFERRED INGUIN AL HERNIA Lap Robotic right Inguinal Hernia p Lap Robotic right Inguinal Hernia p Reason for Visit Right inguinal herni a Chief Complaint Admit Date head injury August 24, 2024 12:5 9pm Chief Complaint Admit Date head injury August 24, 2024 12:5 9pm ED August 24, 2024 2:48 pm Advance Directives Advance Directive Response Recorded Date/ Time Living Will No May 21, 2023 12:04pm Power of Relay Mechanic No May 20 12:04pm Advance Directive Response Recorded Date/ Time Do you have a Healthcare Power of Relay Mechanic? No August 24, 2024 1:04pm Summary Purpose Family History No Family History Records Found Additional Source Comments Care Teams (unrecognized sec tion and content) Team Status: Active Member Role Status Dates No Primary Care Physician Primary Care Provider Active Team Status: Inactive Member Role Status Dates Dr. Renzo Pickard MD Attending Provider Active Team Status: Active Member Role Status Dates Dr. Renzo Pickard MD Attending Pr ovider, Referring Provider, Other Provider Active No Primary Care Physician Primary Care Provider Active Team Status: Inactive Member Role Status Dates Dr. Renzo Pickard MD Attending Provider, Referr ing Provider Active No Primary Care Physician Primary Care Provider Active Team Status: Inactive Member Role Status Dates No Primary Care Physician Primary Care Provider Active Start: August 24, 2024 End: August 24, 2024 Dr. Elsa Hutchison DO Emergency Provider Active S tart: August 24, 2024 End: August 24, 2024 Team Status: Inactive Member Role Status Dates No Primary Care Physician Primary Care Provider Active Start: August 24, 2024 End: August 24, 2024 No Primary Care Physician Referring Provider Active Start: August 24, 2024 End: August 24, 2024 Dr. Deep Fishman MD Attending Provider Active Start: August 24, 2024 End: August 24, 2024 (unrecognized sect ion and content) No Status Records Found INFORMATION SOURCE (unrecogn ized section and content) DATE CREATED AUTHOR 06/18/2023 [facility] Goals (unrecognized section and content) Goals may be documented in a n alternate sectionGoals may be documented in an alternate section FOR RECORDS PERTAINING TO PATIENTS WHO ARE OR HAVE BEEN ENROLLED IN A CHEMICAL DEPENDENCY/SUBSTANCEABUSE PROGRAM, SOME INFORMATION MAY BE OMITTED. This clinical summary was aggregated from multiple sources. Caution should be exercised in using it in the provision of clinical care. This summary normalizes information from multiple sources, and as a consequence, information in this document may materially change the coding, format and clinical context of patient data. In addition, data may be omitted in some cases. CLINICAL DECISIONS SHOULD BE BASED ON THE PRIMARY CLINICAL RECORDS. [facility]. provides no warranty or guarantee of the accuracy or completeness of information in this document.
== END 2024-08-24 14:40 | disposition home or self-care (01) ==
PROVIDERS: Emergency Provider Emergency Medicine; Visit Provider Emergency Medicine
DX: S06.0X1A Concussion with loss of consciousness of 30 minutes or less, initial encounter (principal); S01.01XA Laceration without foreign body of scalp, initial encounter; S01.311A Laceration without foreign body of right ear, initial encounter; W17.89XA Other fall from one level to another, initial encounter; W30.81XA Contact with agricultural transport vehicle in stationary use, initial encounter; Z23 Encounter for immunization
CPT/HCPCS: 70450; 72125; 90471; 90715; 99284